=== PATIENT | male | born 1990 | race Caucasian/White ===

== ENCOUNTER 2023-05-23 19:11 | Emergency (ER) | payer MEDICAID, SELFPAY ==
[2023-05-23 19:14] VITALS: BP 151/118; PULSE 95; RESP 20; TEMP 36.9; O2SAT 98; BMI 38.7
--- NOTE | 2023-05-23 20:08 | HMH.EDGENADL ---
Discharge Plan Disposition Patient Disposition: Home, Self-Care Prescriptions Prescriptions: New hydrocodone-acetaminophen 5-325 mg tablet 1 tab PO Q6H PRN (Reason: pain) 5 Days Qty: 12 0RF prednisone 20 mg tablet 60 mg PO DAILY 7 Days Qty: 21 0RF No Action azithromycin 250 mg tablet 250 mg PO .COMPLEX Qty: 6 0RF Rx Instructions: take 500 mg today (day 1), then 250 mg for 4 days (days 2-5) 250 mg prednisone 20 mg tablet 20 mg PO BID 5 Days Qty: 10 0RF Referrals Follow up/Referrals: Nessa Bower MD [Primary Care Provider] - See instructions Activity Restrictions/Add. Instructions Additional Instructions/Restrictions: Given the chronicity of your symptoms are not improving with your current management I would highly recommend that you seek secondary opinions both from an infectious disease doctor with concerns for possible Lyme arthritis versus progressive chronic worsening of your juvenile rheumatoid arthritis and consultation with a product promoter sales person. Therefore I recommend that you follow-up with infectious disease and rheumatology at [facility] based on your insurance preferences. Clinical Impressions Clinical Impression: Chronic polyarthritis Discharge ED Provider: Venancio Lim General Adult HPI General Chief complaint: PAIN Stated complaint: swelling/pain/and redness all over Time Seen by Provider: 05/23/23 19:43 Mode of Arrival: Ambulatory Source of Information: Patient Limitations: No Limitations Description of Symptoms (Recalled from ER Triage Doc. by RN): patient has RA and is currently being treated for Lyme disease as well. pt has taken all normal daily home meds and is on 500mg amoxcillin TID for the lyme disease, his remicaid infusion for RA has been delayed due to current lyme disease treatment. pt is in pain and all joints are swollen and achy History of Present Illness HPI narrative: Patient is a 32-year-old male with a known history of chronic juvenile rheumatoid arthritis with progressive worsening of his symptoms he is followed by product promoter sales person in [facility] and states that this episode of pain and disability has been ongoing for 7 weeks now and is not improving with several low-dose and tapered courses of steroids as well as his immunologic that he is currently taking. He is also on diclofenac as well as colchicine for chronic gout. He presents today with worsening polyarthralgias. No fevers or chills. Of note he was recently diagnosed with a concern for questionable Lyme arthritis and is on amoxicillin. No fevers or chills etc. Related Data Previous Rx's Medication Instructions Recorded azithromycin 250 mg tablet 250 mg PO .COMPLEX #6 tabs 09/19/18 prednisone 20 mg tablet 20 mg PO BID 5 days #10 tabs 09/19/18 hydrocodone 5 mg-acetaminophen 325 1 tab PO Q6H PRN pain 5 days #12 05/23/23 mg tablet tabs prednisone 20 mg tablet 60 mg PO DAILY 7 days #21 tabs 05/23/23 Allergies Allergy/AdvReac Type Severity Reaction Status Date / Time belladonna alkaloids Allergy Verified 05/23/23 19:32 Gadolinium-Containing Allergy Verified 05/23/23 19:32 Contrast Medi latex Allergy Verified 05/23/23 19:31 levofloxacin [From Levaquin] Allergy Verified 05/23/23 19:32 minocycline Allergy Verified 05/23/23 19:32 [facility] Disclaimer: The information contained in this section may have been updated after the patient was seen, as this information can be updated by other users. Medical History (Updated 05/23/23 @ 20:07 by Venancio Lim MD) Lyme disease Rheumatoid arthritis Social History Smoking Status: Never smoker alcohol intake: never substance use type: denies use current occupational status: employed Travel in the last 8 weeks: None household members: significant other housing: house ROS Obtained: Yes All systems reviewed & no additional complaints except as documented Physical Exam General General appearanc
[2023-05-23 20:21] VITALS: BP 148/101; PULSE 78; RESP 20; TEMP 36.7; O2SAT 97
== END 2023-05-23 20:22 | disposition home or self-care (01) ==
PROVIDERS: Emergency Provider Student in an Organized Health Care Education/Training Program; PCP Family Medicine
DX: M13.0 Polyarthritis, unspecified (principal); M06.9 Rheumatoid arthritis, unspecified; A69.20 Lyme disease, unspecified
CPT/HCPCS: 99283

== ENCOUNTER 2024-01-21 09:52 | Outpatient (POV) | payer OTHER, SELFPAY ==
[2024-01-21 09:56] VITALS: BP 138/97; PULSE 95; RESP 18; O2SAT 98; BMI 37.3
--- OUTSIDE RECORDS SUMMARY | 2024-01-21 09:57 | XMS_ITS | Continuity of Care Document ---
Author Name Unknown Organization [facility] Address [address] [place] [address] Phone Care Team Providers Care District Wire Chief Name Role Phone Sylvie Garcia MD Unavailable Unavailable Allergies, Adverse Reactions, Alerts Substance Reaction Status Criticality latex Active No Information Medications Medication Instructions Dosage Effective Dates (start - stop) Status Comments oxycodone-acetaminophen 10 mg-325 mg tablet TAKE 1 TABLET BY MOUTH EVERY 6 HOURS NEEDED FOR ACUTE PAIN OR CHRONIC PAIN - Active methocarbamol 750 mg tablet TAKE 1 TABLET BY MOUTH 3 TIMES DAILY FOR 30 DAYS. - Active levocetirizine 5 mg tablet - Active amoxicillin 500 mg capsule TAKE 1 CAPSULE BY MOUTH 3 TIMES DAILY FOR 10 DAYS - Active fluoxetine 20 mg capsule - A ctive pregabalin 50 mg capsule - A ctive metoprolol succinate ER 25 mg tablet,extended release 24 hr - Active Vraylar 3 mg capsule - Activ e amoxicillin 875 mg-potassium clavulanate 125 mg tablet - Active tamsulosin 0.4 mg capsule - Active ondansetron HCl 4 mg tablet TAKE 1 TABLET BY MOUTH EVERY 8 HOURS NEEDED FOR NAUSEA. - Active oxycodone-acetaminophen 5 mg-325 mg tablet - Active indomethacin 50 mg capsule - Active duloxetine 30 mg capsule,delayed release - Active bupropion HCl XL 150 mg 24 hr tablet, extended release - Active colchicine 0.6 mg tablet - A ctive prednisone 20 mg tablet - tive prednisone 50 mg tablet TAKE 1 TABLET BY MOUTH DAILY - Active ketorolac 10 mg tablet TAKE 1 TABLET BY MOUTH TWICE DAILY - Active lisinopril 5 mg tablet - Act rosa sucralfate 1 gram tablet - A ctive allopurinol 100 mg tablet - Active famotidine 40 mg tablet - Ac tive prednisone 5 mg tablet TAKE 2 TABLETS BY MOUTH ONCE DAILY FOR 2 DAYS, THEN 1 TABLET DAILY FOR 4 DAYS - Active ipratropium 0.5 mg-albuterol 3 mg (2.5 mg base)/3 mL nebulization soln INHALE 1 VIAL BY NEBULIZATION EVERY 6 HOURS NEEDED FOR SHORTNESS OF BREATH - Active promethazine 6.25 mg-codeine 10 mg/5 mL syrup TAKE 5 ML BY MOUTH EVERY 6 HOURS NEEDED FOR (COUGH) FOR UP TO 3 DAYS. - Active promethazine-DM 6.25 mg-15 mg/5 mL oral syrup TAKE 5 ML BY MOUTH EVERY 6 HOURS NEEDED FOR OTHER (COUGH) FOR UP TO 30 DAYS. - Active ibuprofen 600 mg tablet TAKE 1 TABLET BY MOUTH EVERY 8 HOURS NEEDED FOR PAIN FOR UP TO 30 DAYS. - Active fluticasone propionate 50 mcg/actuation nasal spray,suspension INSTILL 2 SPRAYS IN EACH NOSTRIL DAILY FOR 14 DAYS - Active azithromycin 250 mg tablet - Active sucralfate 100 mg/mL oral suspension - Active dexamethasone 4 mg tablet - Active cephalexin 500 mg capsule TAKE 1 CAPSULE BY MOUTH IN THE MORNING, 1 CAPSULE AT NOON, & 1 CAPSULE IN THE EVENING FOR 7 DAYS. - Active cefdinir 300 mg capsule TAKE 1 CAPSULE B Y MOUTH TWICE DAILY FOR 10 DAYS - Active bupropion HCl XL 300 mg 24 hr tablet, extended release TAKE 1 TABLET BY MOUTH EVERY MORNING - Active tramadol 50 mg tablet - Acti ve colchicine 0.6 mg capsule TAKE 1 CAPSULE BY MOUTH TWICE DAILY - Active chlorhexidine gluconate 0.12 % mouthwash - Active levothyroxine 25 mcg tablet - Active valacyclovir 500 mg tablet - Active dexamethasone 0.5 mg/5 mL oral elixir - Active methylprednisolone 4 mg tablets in a dose pack TAKE 6 TABLETS ON DAY 1,THEN 5 TABS ON DAY 2,THEN 4 TABS ON DAY 3, 3 TABS ON DAY 4,THEN 2 TABS ON DAY 5 AND 1 TAB ON DAY 6. *TAKE WITH FOOD* - Active meloxicam 15 mg tablet - Act rosa hydrocodone 5 mg-acetaminophen 325 mg tablet - Active triamcinolone acetonide 0.1 % dental paste - Active levofloxacin 500 mg tablet - Active albuterol sulfate HFA 90 mcg/actuation aerosol inhaler - Active levofloxacin 750 mg tablet - Active potassium citrate ER 10 mEq (1,080 mg) tablet,extended release TAKE 1 TABLET BY MOUTH 3 TIMES DAILY - Active oxycodone-acetaminophen 7.5 mg-325 mg tablet TAKE 1 TO 2 TABLETS BY MOUTH EVERY 6 HOURS NEEDED FOR ACUTE PAIN FOR UP TO 3 DAYS. - Active doxycycline hyclate 100 mg tablet TAKE 1 TABLET BY MOUTH 2 TIMES DAILY FOR 7 DAYS. - Active ketoconazole 2 % shampoo APPLY TO THE SK IN 1 TIME A DAY. USE SHAMPOO FOR SCALP AND LAZARO. LEAVE IN FOR 5 MINUTES THEN RINSE - Active ketoconazole 2 % topical cream APPLY TO THE SKIN 1 TIME A DAY. APPLY TO REDNESS AND SCALING ON THE CENTRAL FACE - Active Betasept Surgical Scrub 4 % topical liquid APPLY TO THE SKIN 1 TIME A DAY. USE BODY WASH TO THE CHEST, BACK, AND EXTREMITIES - Active EC-Naproxen 500 mg tablet,delayed release TAKE 1 TABLET BY MOUTH TWICE DAILY WITH MEALS FOR 14 DAYS - Active Hibiclens 4 % topical liquid USE TO SHOWER WITH DAILY FOR 7 DAYS, ONCE A WEEK FOR 4 WEEKS, THEN ONCE A MONTH UNTIL GONE - Active mupirocin 2 % topical ointment APPLY TOPICALLY 3 TIMES DAILY - Active valacyclovir 1 gram tablet TAKE 1 TABLET BY MOUTH EVERY 8 HOURS FOR 7 DAYS. - Active phenazopyridine 100 mg tablet TAKE 1 TABLET BY MOUTH 3 TIMES DAILY NEEDED FOR UP TO 3 DAYS. - Active tolterodine ER 4 mg capsule,extended release 24 hr TAKE 1 CAPSULE BY MOUTH ONCE DAILY. - Active Mucus Relief ER 600 mg tablet, extended release TAKE 1 TABLET BY MOUTH TWICE DAILY FOR 5 DAYS - Active benzonatate 100 mg capsule TAKE 1 CAPSULE BY MOUTH 3 TIMES DAILY NEEDED FOR COUGH - Active Symbicort 160 mcg-4.5 mcg/actuation HFA aerosol inhaler INHALE TWO PUFFS INTO THE LUNGS TWICE DAILY - Active prednisone 10 mg tablet TAKE 5 TABLETS B Y MOUTH DAILY X2 DAYS, 4 TABS DAILY X2 DAYS, 3 TABS DAILY X2 DAYS, 2 TABS DAILY X2 DAYS, 1 TAB ONCE DAILY X2 DAYS, 1/2 TAB DAILY X2 DAYS. - Active ondansetron 4 mg disintegrating tablet DISSOLVE 1 TABLET ON TONGUE EVERY 4 HOURS NEEDED FOR NAUSEA. - Active ProAir HFA 90 mcg/actuation aerosol inhaler INHALE 2 PUFFS INTO THE LUNGS EVERY 4 HOURS NEEDED FOR WHEEZING. - Active Antiseptic Skin Cleanser (chlorhexidine) 4 % liquid WASH EVERY OTHER DAY FOR A COUPLE OF WEEKS. - Active Duexis 800 mg-26.6 mg tablet take 1 tablet by oral route 3 times every day 1.00 tablet - Active etodolac 400 mg tablet take 1 tablet by oral route 2 times every day with food 400 MG - Active Xeljanz 5 mg tablet take 1 tablet by oral route 2 times every day 5 MG - Active omeprazole 20 mg capsule,delayed release take 1 capsule by oral route every day 30 minutes to 1 hour before a meal 20 MG - Active Procedures Procedure Date Office/outpatient visit,est, mod 2021 Office/outpatient visit,new, mod 2021 Office/outpatient visit,new, mod 2016 Afo ankle gauntlet Afo ankle gauntlet Advance Directives Directive Yes / No Effective Date File Name No Information Encounters Encounter Description Practice Location Reason(s) For Visit Diagnoses Date Provider Providers Copied on Encounter [facility], [address] [place] [address], [facility], tel:[phone] [address] [place] [address] Surgical Suite No Information [address] [facility] Sylvie. [address] [place], [place], [id number] , [place]. tel:[phone] Referring Provider: Nessa Rivero, [place], [address]. tel:[phone] Office/outpat ient visit,[facility], [facility], [address] [place], [place], [facility], tel:[phone] [facility] Spondylolysis, lumbar region [address] [facility] Sylvie. [address] [place], [place], [id number] , [place]. tel:[phone] Referring Provider: [place], [address]. tel:[phone] Office[facility]pat ient [facility], [address] [place], [address], [place] tel:[phone] Other intervertebral disc degeneration, lumbar regionRadiculop athy, lumbar region Sep- 2 Jose Mercer. [address] [facility], [place], [place], [id number] , [place]. tel:[phone] Referring Provider: Sylvie Hannah, [address] [facility], [place], [address] . tel:[phone] [facility], [facility] [address] [place], [place], [facility], tel:[phone] 700 [facility] No Information Mar- 2 Jose Sylvie. [address] [place], [place], [id number] , [place]. tel:[phone] [facility], [facility] [address] [place], [place], [facility], tel:[phone] [facility] No Information 7 [place]. [address] [facility], [place], [place], [id number] , [place]. tel:[phone] Office/outpat ient visit,[facility] [address] [place], [place], [facility], tel:[phone] No Information 7 [place]. [address] [place], [place], [id number] , . tel:[phone] [facility] [address] [place], [place], [facility], tel:[phone] [facility] No Information 7 [place]. [address], [place], [place], [id number] , [place]. tel:[phone] Family History Family Member Type Diagnosis Age At Onset Problem (finding) Family history of hyper tension Problem (finding) Family history of Diabe cristi mellitus Payers Payer name Insurance type Covered alliance party ID Authorjohna tinuria(s) [facility] - [id number] Social History Type Description Quantity Date Captured Comments Alcohol Use Details Unknown Caffeine Use Details Unknown Tobacco Use Status No Information Smoking Status No Information Sex Male Chief Complaint And Reason For Visit No Information Reason For Referral Reason For Referral No Information History Of Present Illness Encounter Date Complaint History Of Prese nt Illness No Information Functional Status Date Functional Assessmen t No Information Instructions Date Instruction Additional Infor mation No Information Assessments Type Assessment Date No Information Patient Care Teams Name Effective Dates (start - stop) Status Members No Information
--- NOTE | 2024-01-21 12:37 | EXP.PAIN.OV ---
HPI Data of Consult Patient: new to practice Consult date: 01/21/24 Requesting Physician: Julia Zamudio APRN Primary Care Provider: Ly Dickinson DO Consult Narrative Reason for consult: Infected pilonidal cyst, chronic low back pain History of present illness: Mr. Dc is a 33 year old male who presents today as a new patient. He is a referral from [facility] care. Today he rates his pain a 6 out of 10. Patient states he has chronic pain throughout his low back that is been going on for over 2 years. He denies states that he did end up having surgery and that this did take away his overall leg symptoms. He states he will occasionally have pain in his legs but it is not that frequently. Patient does however state most of his pain is related to an infected pilonidal cyst. Patient states that he did see a provider in [facility] named Dr. Nguyễn and that this procedure was originally done on November 27 of this year. He states he has had to go back into different times to have it drained and that they did do cultures however the first culture was lost and the second 1 showed staph. Patient does state that he has severe pain that is a sharp, throbbing sensation that is constant. He does state that he has a lot of trouble even sitting due to the pain. Patient does state that this infection is large and does have tunneling. He states that they have been packing it with initially antibiotic packing strips but now they have changed it to plain strips that they do soaked in solution before applying. Patient does state that he relies on his mom for help with attending this issue. Patient does state that he has been prescribed Percocet 5 mg 4 times a day and is also on Bactrim however feels like it is not improving any of his overall symptoms. Patient does state that he got sent to our office to see about continuing oral medications due to his primary care saying that they could not do the prescriptions long-term. Patient does state that he has stage II kidney disease. Patient has been tried on oral medications, heat and ice, topicals, muscle relaxers with some improvement. He states that he did have imaging done in [place] and has tried lumbar injections in the past that did not seem to do as well however this was before his lumbar surgery. His Ganesh has been reviewed and is appropriate. CC: Julia Zamudio APRN [facility] Disclaimer: The information contained in this section may have been updated after the patient was seen, as this information can be updated by other users. Medical History (Updated 01/21/24 @ 12:44 by Julia Zamudio APRN) Lyme disease Rheumatoid arthritis Social History Smoking Status: Never smoker alcohol intake: never substance use type: denies use current occupational status: other Travel in the last 8 weeks: None household members: significant other housing: house Review of Systems Review of Systems Review of systems:: pertinent systems reviewed and negative unless documented below Review of systems (narrative): Review of Systems: General: No recent weight changes, no fever, no sleep disturbances Respiratory: No cough, no shortness of air, no recurring pulmonary infections Cardiovascular/peripheral vascular: No chest pain, no palpitations, no edema, no shortness of breath Gastrointestinal: No new onset incontinence, normal bowel movements reported Genitourinary: No new onset incontinence Musculoskeletal: Low back pain, Psychiatric: [Normal mood/affect] Neurological: [Denies weakness in extremities], [denies balance issues] Meds Home Medications and Allergies Home Medications Medication Instructions Recorded Confirmed Type hydrocodone 5 mg-acetaminophen 325 1 tab PO Q6H PRN pain 5 days #12 05/23/23 01/21/24 Rx mg tablet tabs bupropion HCl 150 mg 24 hr tablet, 150 mg PO DAILY 01/21/24 01/21/24 History extended release (Wellbutrin XL) cariprazine 4.5 mg capsule 4.5 mg PO DAILY 01/21/24 01/21/24 History (Vraylar) duloxetine 30 mg capsule,delayed 30 mg PO BID 01/21/24 01/21/24 History release (Cymbalta) famotidine 40 mg tablet 40 mg PO DAILY 01/21/24 01/21/24 History fluoxetine 20 mg capsule (Prozac) 20 mg PO DAILY 01/21/24 01/21/24 History infliximab 100 mg intravenous 100 mg IV MONTHLY 01/21/24 01/21/24 History solution (Remicade) levocetirizine 5 mg tablet 5 mg PO DAILY 01/21/24 01/21/24 History lisinopril 5 mg tablet 5 mg PO DAILY 01/21/24 01/21/24 History metoprolol tartrate 25 mg tablet 25 mg PO DAILY 01/21/24 01/21/24 History omeprazole 40 mg capsule,delayed 40 mg PO DAILY 01/21/24 01/21/24 History release New Prescriptions to Start Prescriptions: Allergies Allergy/AdvReac Type Severity Reaction Status Date / Time belladonna alkaloids Allergy Verified 01/21/24 09:56 Gadolinium-Containing Allergy Verified 01/21/24 09:56 Contrast Medi latex Allergy Verified 01/21/24 09:56 levofloxacin [From Levaquin] Allergy Verified 01/21/24 09:56 minocycline Allergy Verified 01/21/24 09:56 Objective Vital signs: Pulse Resp BP Pulse Ox O2 Del Method 95 H 18 138/97 H 98 Room Air 01/21/24 09:56 01/21/24 09:56 01/21/24 09:56 01/21/24 09:56 01/21/24 09:56 Narrative: Physical Exam: General: Alert and oriented x3, no acute distress, pleasant and cooperative Lungs: Respirations even and unlabored, symmetrical chest expansion Eyes: PERRL Musculoskeletal: Flexion and extension of [] [spine] somewhat guarded secondary to pain, [antalgic gait noted] Neurological: Speech clear, no gross sensory deficit Additional findings Additional findings: Lumbar MRI 10/21/2023 Findings: There are expected postoperative changes in the posterior elements and posterior soft tissues at L4-L5 and L5-S1. No fluid collection is identified. There is no epidural abscess. Alignment of the lumbar spine is normal. The vertebral heights are maintained and there is no fracture. Disc protrusions and annular fissures and central canal narrowing at L4-L5 and L5-S1 are similar to prior MRI Thoracic MRI Findings: Alignment of the thoracic spine is normal. Vertebral heights are maintained and no fracture. Caliber and signal of the spinal cord are normal. No areas of abnormal enhancement. disc heights are preserved no degenerative changes. Soft tissues unremarkable Assessment and Plan *Assessment and plan (1) Low back pain: Status: Acute Qualifiers: Chronicity: chronic Back pain laterality: bilateral Sciatica presence: without sciatica Qualified Code(s): M54.50 - Low back pain, unspecified; G89.29 - Other chronic pain Category: Medical Code(s): M54.50 - Low back pain, unspecified (2) Degenerative disc disease, lumbar: Status: Acute Category: Medical Code(s): M51.36 - Other intervertebral disc degeneration, lumbar region (3) Infected pilonidal cyst: Status: Acute Category: Medical Code(s): L05.91 - Pilonidal cyst without abscess Plan Due to the extent of discussion regarding the patient's pilonidal cyst infection I have discussed with him that I do believe it would be very beneficial to discuss with another general surgeon about possible washout with antibiotics and possible closure. Patient is agreeable to this plan of care. I have discussed with patient due to this infection we are not able to offer any additional injections until this is taking care of. Patient acknowledges understanding. I have also discussed that we may be able to send in some pain medication however patient is scheduled to see wound management this coming Sunday and he does state he would like to talk to them first before we send anything in. I am agreeable to this option. Patient will follow back up in our clinic in 2 weeks for reevaluation of symptoms and plan of care. We will send a referral to Dr. Dolan's office here at [facility] to address the infected pilonidal cyst for second opinion. Patient has been instructed to contact the clinic with any concerns before the next appointment. Dr. Rodriguez has reviewed this note and agrees with this plan of care. This note was dictated using voice recognition software and make contain errors or omissions.
== END 2024-01-21 23:59 | disposition home or self-care (01) ==
LOC: SC.PAIN 09:55
PROVIDERS: PCP Student in an Organized Health Care Education/Training Program; Visit Provider Nurse Practitioner Family
DX: G89.29 Other chronic pain; M51.36 Other intervertebral disc degeneration, lumbar region; L05.91 Pilonidal cyst without abscess; N18.2 Chronic kidney disease, stage 2 (mild); Z79.899 Other long term (current) drug therapy
CPT/HCPCS: 99202; G0463

== ENCOUNTER 2024-01-26 12:45 | Emergency (ER) | payer OTHER, SELFPAY ==
[2024-01-26 13:00] VITALS: BP 137/89; PULSE 117; RESP 20; TEMP 36.8; O2SAT 98; BMI 37.3
--- NOTE | 2024-01-26 13:01 | EXP.UTC ---
Discharge Plan Disposition Patient Disposition: Home, Self-Care Condition: Good Prescriptions Prescriptions: New cefdinir 300 mg capsule 300 mg PO BID Qty: 20 0RF prednisone 20 mg tablet 20 mg PO BID Qty: 10 0RF albuterol sulfate 90 mcg/actuation HFA aerosol inhaler 2 inh inhalation Q4-6H PRN (Reason: shortness of breath or wheezing) Qty: 6.7 0RF No Action buspirone 10 mg tablet 10 mg PO DAILY Patient Comments: TAKE 2 TABLETS BY MOUTH DAILY. MAKE TAKE AN ADDITIONAL BUSPAR DAILY IF NEED FOR ANXIETY hydrocodone-acetaminophen 5-325 mg tablet 1 tab PO Q6H PRN (Reason: pain) 5 Days Qty: 12 0RF famotidine 40 mg Tablet 40 mg PO DAILY omeprazole 40 mg Capsule,Delayed Release(Dr/Ec) 40 mg PO DAILY infliximab [Remicade] 100 mg Recon Soln 100 mg IV MONTHLY lisinopril 5 mg Tablet 5 mg PO DAILY fluoxetine [Prozac] 20 mg Capsule 20 mg PO DAILY bupropion HCl [Wellbutrin XL] 150 mg Tablet Extended Release 24 Hr 150 mg PO DAILY metoprolol tartrate 25 mg Tablet 25 mg PO DAILY duloxetine [Cymbalta] 30 mg Capsule,Delayed Release(Dr/Ec) 30 mg PO BID levocetirizine 5 mg Tablet 5 mg PO DAILY Vraylar 4.5 mg Capsule 4.5 mg PO DAILY Referrals Follow up/Referrals: Ly Dickinson DO [Primary Care Provider] - See instructions Clinical Impressions Clinical Impression: Bronchitis, Chronic polyarthritis Instructions Patient Instructions: DI for Acute Bronchitis Print Language Print Language: Kinyarwanda Discharge ED Provider: [place] Nolasco [facility] General Stated complaint: head congestion, arthritis flare up Time Seen by Provider: 01/26/24 13:20 History of Present Illness Provider Complaint: Congestion, headache, sore throat, fever, body aches X 3 days. History of juvenile RA but has not had infusion since September due to pilonidal cyst. Onset (ago): day(s) (3) Location: head Relieving factors: none Exacerbating factors: none Associated symptoms: denies other symptoms, cough, fever/chills, headaches and shortness of breath Treatments prior to arrival: none Related Data Home Medications ?Medication ?Instructions ?Recorded ?Confirmed bupropion HCl 150 mg 24 hr tablet, 150 mg PO DAILY 01/21/24 01/26/24 extended release (Wellbutrin XL) cariprazine 4.5 mg capsule 4.5 mg PO DAILY 01/21/24 01/26/24 (Vraylar) duloxetine 30 mg capsule,delayed 30 mg PO BID 01/21/24 01/26/24 release (Cymbalta) famotidine 40 mg tablet 40 mg PO DAILY 01/21/24 01/26/24 fluoxetine 20 mg capsule (Prozac) 20 mg PO DAILY 01/21/24 01/26/24 infliximab 100 mg intravenous 100 mg IV MONTHLY 01/21/24 01/26/24 solution (Remicade) levocetirizine 5 mg tablet 5 mg PO DAILY 01/21/24 01/26/24 lisinopril 5 mg tablet 5 mg PO DAILY 01/21/24 01/26/24 metoprolol tartrate 25 mg tablet 25 mg PO DAILY 01/21/24 01/26/24 omeprazole 40 mg capsule,delayed 40 mg PO DAILY 01/21/24 01/26/24 release buspirone 10 mg tablet 10 mg PO DAILY 01/26/24 01/26/24 Previous Rx's ?Medication ?Instructions ?Recorded hydrocodone 5 mg-acetaminophen 325 1 tab PO Q6H PRN pain 5 days #12 05/23/23 mg tablet tabs albuterol sulfate 90 mcg/actuation 2 inh inhalation Q4-6H PRN 01/26/24 aerosol inhaler shortness of breath or wheezing #6.7 grams cefdinir 300 mg capsule 300 mg PO BID #20 caps 01/26/24 prednisone 20 mg tablet 20 mg PO BID #10 tabs 01/26/24 Allergies Allergy/AdvReac Type Severity Reaction Status Date / Time belladonna alkaloids Allergy Verified 01/21/24 09:56 Gadolinium-Containing Allergy Verified 01/21/24 09:56 Contrast Medi latex Allergy Verified 01/21/24 09:56 levofloxacin [From Levaquin] Allergy Verified 01/21/24 09:56 minocycline Allergy Verified 01/21/24 09:56 [facility] Disclaimer: The information contained in this section may have been updated after the patient was seen, as this information can be updated by other users. Medical History (Updated 01/26/24 @ 13:36 by MARGARITO oL) Kidney stones GERD (gastroesophageal reflux disease) Depression Anxiety Migraine Asthma Hypertension Lyme disease Rheumatoid arthritis Surgical History (Updated 01/26/24 @ 13:15 by Beba Kaplan, RN) History of surgical removal of pilonidal cyst History of lumbar discectomy History of foot surgery Social History Smoking Status: Never smoker alcohol intake: never substance use type: denies use current occupational status: other Travel in the last 8 weeks: None household members: significant other housing: house ROS Obtained: Yes All systems reviewed & no additional complaints except as documented Physical Exam General General appearance: alert and in no apparent distress Head Head exam: atraumatic, normocephalic and normal inspection Eye Eye exam: Present normal appearance, PERRL and EOMI ENT ENT exam: Present normal exam, normal oropharynx, mucous membranes moist, TM's normal bilaterally and normal external ear exam Expanded ENT Exam Nose exam: Present sinus tenderness Throat exam: Present tonsillar erythema Neck Neck exam: Present normal inspection, full ROM and trachea midline; Absent meningismus or lymphadenopathy Chest Chest inspection: Present normal inspection and symmetric chest wall rise; Absent tenderness Respiratory Respiratory exam: Present normal lung sounds bilaterally and wheezes; Absent respiratory distress Cardiovascular Cardiovascular exam: Present regular rate and normal rhythm; Absent JVD Abdominal Exam Abdominal exam: Present soft and normal bowel sounds; Absent distention, tenderness or guarding Extremities Exam Extremities exam: Present normal inspection, full ROM and normal capillary refill; Absent calf tenderness Back Exam Back exam: Present normal inspection; Absent tenderness Neurological Exam Neurological exam: Present alert and oriented X3 Psychiatric Psychiatric exam: Present normal affect and normal mood Skin Skin exam: Present warm, dry, intact and normal color Lymphatic Lymphatic Findings: no adenopathy Medical Decision Making Ganesh Inquiry Pt receiving controlled substance: No
[2024-01-26] MEDS: cefTRIAXone 1GM VIAL 1 GM IM (13:29)
[2024-01-26] MEDS: LIDOCAINE 1% 5ML PF VIAL IM (13:29)
[2024-01-26] MEDS: methylPREDNISolone ACETATE 80MG/ML VIAL 80 MG IM (13:29)
[2024-01-26 13:38] VITALS: BP 137/89; PULSE 117; RESP 20; TEMP 36.8; O2SAT 98
== END 2024-01-26 13:45 | disposition home or self-care (01) ==
PROVIDERS: Emergency Provider Physician Assistant; PCP Student in an Organized Health Care Education/Training Program
DX: J20.9 Acute bronchitis, unspecified (principal); R51.9 Headache, unspecified; R50.9 Fever, unspecified; R07.0 Pain in throat; M13.0 Polyarthritis, unspecified
CPT/HCPCS: 96372; 99204; 99212; G0463; J0696; J1010

== ENCOUNTER 2024-02-06 08:42 | Outpatient (POV) | payer OTHER, SELFPAY ==
--- OUTSIDE RECORDS SUMMARY | 2024-02-06 08:45 | XMS_ITS | Continuity of Care Document ---
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 - Active oxycodone-acetaminophen 10 mg-325 mg tablet TAKE 1 TABLET BY MOUTH EVERY 6 HOURS NEEDED FOR ACUTE PAIN OR CHRONIC PAIN - Active amoxicillin 500 mg capsule TAKE 1 CAPSULE BY MOUTH 3 TIMES DAILY FOR 10 DAYS - Active fluoxetine 20 mg capsule - A ctive pregabalin 50 mg capsule - A ctive metoprolol succinate ER 25 mg tablet,extended release 24 hr - Active Vraylar 3 mg capsule - Activ e amoxicillin 875 mg-potassium clavulanate 125 mg tablet - Active ondansetron HCl 4 mg tablet TAKE 1 TABLET BY MOUTH EVERY 8 HOURS NEEDED FOR NAUSEA. - Active tamsulosin 0.4 mg capsule - Active oxycodone-acetaminophen 5 mg-325 mg tablet - Active indomethacin 50 mg capsule - Active bupropion HCl XL 150 mg 24 hr tablet, extended release - Active duloxetine 30 mg capsule,delayed release - Active colchicine 0.6 mg tablet - A ctive prednisone 20 mg tablet - Ac tive ketorolac 10 mg tablet TAKE 1 TABLET BY MOUTH TWICE DAILY - Active prednisone 50 mg tablet TAKE 1 TABLET BY MOUTH DAILY - Active lisinopril 5 mg tablet - Act rosa sucralfate 1 gram tablet - A ctive allopurinol 100 mg tablet - Active famotidine 40 mg tablet - Ac tive ipratropium 0.5 mg-albuterol 3 mg (2.5 mg base)/3 mL nebulization soln INHALE 1 VIAL BY NEBULIZATION EVERY 6 HOURS NEEDED FOR SHORTNESS OF BREATH - Active prednisone 5 mg tablet TAKE 2 TABLETS BY MOUTH ONCE DAILY FOR 2 DAYS, THEN 1 TABLET DAILY FOR 4 DAYS - Active promethazine 6.25 mg-codeine 10 mg/5 [...] NOSTRIL DAILY FOR 14 DAYS - Active ibuprofen 600 mg tablet TAKE 1 TABLET BY MOUTH EVERY 8 HOURS NEEDED FOR PAIN FOR UP TO 30 DAYS. - Active azithromycin 250 mg tablet - Active sucralfate 100 mg/mL oral suspension - Active dexamethasone 4 mg tablet - Active cephalexin 500 mg capsule TAKE 1 CAPSULE BY MOUTH IN THE MORNING, 1 CAPSULE AT NOON, & 1 CAPSULE IN THE EVENING FOR 7 DAYS. - Active bupropion HCl XL 300 mg 24 hr tablet, extended release TAKE 1 TABLET BY MOUTH EVERY MORNING - Active cefdinir 300 mg capsule TAKE 1 CAPSULE B Y MOUTH TWICE DAILY FOR 10 DAYS - Active tramadol 50 mg tablet - Acti ve colchicine 0.6 mg capsule TAKE 1 CAPSULE BY MOUTH TWICE DAILY - Active chlorhexidine gluconate 0.12 % mouthwash - Active levothyroxine 25 mcg tablet - Active dexamethasone 0.5 mg/5 mL oral elixir - Active valacyclovir 500 mg tablet - Active methylprednisolone 4 mg tablets in a dose pack TAKE 6 TABLETS ON DAY 1,THEN 5 TABS ON DAY 2,THEN 4 TABS ON DAY 3, 3 TABS ON DAY 4,THEN 2 TABS ON DAY 5 AND 1 TAB ON DAY 6. *TAKE WITH FOOD* - Active hydrocodone 5 mg-acetaminophen 325 mg tablet - Active meloxicam 15 mg tablet - Act rosa triamcinolone acetonide 0.1 % dental paste - Active levofloxacin 500 mg tablet - Active albuterol sulfate HFA 90 mcg/actuation aerosol inhaler - Active levofloxacin 750 mg tablet - Active potassium citrate ER 10 mEq (1,080 mg) tablet,extended release TAKE 1 TABLET BY MOUTH 3 TIMES DAILY - Active doxycycline hyclate 100 mg tablet TAKE 1 TABLET BY MOUTH 2 TIMES DAILY FOR 7 DAYS. - Active oxycodone-acetaminophen 7.5 mg-325 mg tablet TAKE 1 TO 2 TABLETS BY MOUTH EVERY 6 HOURS NEEDED FOR ACUTE PAIN FOR UP TO 3 DAYS. - Active Betasept Surgical Scrub 4 % topical liquid APPLY TO THE SKIN 1 TIME A DAY. USE BODY WASH TO THE CHEST, BACK, AND EXTREMITIES - Active ketoconazole 2 % topical cream APPLY TO THE SKIN 1 TIME A DAY. APPLY TO REDNESS AND SCALING ON THE CENTRAL FACE - Active ketoconazole 2 % shampoo APPLY TO THE SK IN 1 TIME A DAY. USE SHAMPOO FOR SCALP AND LAZARO. LEAVE IN FOR 5 MINUTES THEN RINSE - Active EC-Naproxen 500 mg tablet,delayed release [...] CAPSULE BY MOUTH ONCE DAILY. - Active benzonatate 100 mg capsule TAKE 1 CAPSULE BY MOUTH 3 TIMES DAILY NEEDED FOR COUGH - Active Mucus Relief ER 600 mg tablet, extended release TAKE 1 TABLET BY MOUTH TWICE DAILY FOR 5 DAYS - Active prednisone 10 mg tablet TAKE 5 TABLETS B Y MOUTH DAILY X2 DAYS, 4 TABS DAILY X2 DAYS, 3 TABS DAILY X2 DAYS, 2 TABS DAILY X2 DAYS, 1 TAB ONCE DAILY X2 DAYS, 1/2 TAB DAILY X2 DAYS. - Active Symbicort 160 mcg-4.5 mcg/actuation HFA aerosol inhaler INHALE TWO PUFFS INTO THE LUNGS TWICE DAILY - Active ondansetron 4 mg disintegrating tablet DISSOLVE 1 TABLET ON TONGUE EVERY 4 HOURS NEEDED FOR NAUSEA. - Active Antiseptic Skin Cleanser (chlorhexidine) 4 % liquid WASH EVERY OTHER DAY FOR A COUPLE OF WEEKS. - Active ProAir HFA 90 mcg/actuation aerosol inhaler INHALE 2 PUFFS INTO THE LUNGS EVERY 4 HOURS NEEDED FOR WHEEZING. - Active Duexis 800 mg-26.6 mg tablet take 1 tablet by oral route 3 times every day 1.00 tablet - Active omeprazole 20 mg capsule,delayed release take 1 capsule by oral route every day 30 minutes to 1 hour before a meal 20 MG - Active Xeljanz 5 mg tablet take 1 tablet by oral route 2 times every day 5 MG - Active etodolac 400 mg tablet take 1 tablet by oral route 2 times every day with food 400 MG - Active Procedures Procedure Date Office/outpatient visit,est, mod 2021 Office/outpatient visit,new, mod 2021 Office/outpatient visit,new, mod 2016 Afo ankle gauntlet Afo ankle gauntlet Advance Directives Directive Yes / No Effective Date File Name No Information Encounters Encounter Description Practice Location Reason(s) For Visit Diagnoses Date Provider Providers Copied on Encounter [facility], [address] [place] [address], [place], tel:[phone] [address] [place] [address] Surgical Suite No Information 2 Jose Sylvie. [address], [place], [id number] , [place]. tel:[phone] Referring Provider: Gur[place], [id number]. tel:[phone] Office/outpat ient visit,[facility], [facility], [address], [place], [place], tel:[phone] [facility] Spondylolysis, lumbar region 2 Jose Sylvie. [address], [place], [id number] , [place]. tel:[phone] Referring Provider: [place], [id number]. tel:[phone] Office/outpat ient visit,[facility], [address] [place], [address], [place] tel:[phone] [facility] Other intervertebral disc degeneration, lumbar regionRadiculop athy, lumbar region Sep-2 2 Jose Mercer. [address] [facility], [place], [place], [id number] , [place]. tel:[phone] Referring Provider: Sylvie Hannah, [address] [place], [address] . tel:[phone] [facility], [facility] [address], [place], [place], tel:[phone] [address] [facility] No Information Mar-2 2 Jose Sylvie. [address] [place], [place], [id number] , [place]. tel:[phone] [facility], [facility] [address], [place], [place], tel:[phone] 700 [facility] No Information 7 [facility]. [facility] [address] [facility], [place], [place], [id number] , [place]. tel:[phone] Office/outpat ient visit,[facility] [address], [place], [place], tel:[phone] 700 [facility] No Information 7 [place] [facility]. [address] [facility], [place], [place], [id number] , [place]. tel:[phone] [facility] [address], [place], [place], tel:[phone] 700 [facility] No Information 7 [place] [facility]. [address], [place], [place], [id number] , [place]. tel:[phone] Family History Family Member Type Diagnosis Age At Onset Problem (finding) Family history of hyper tension Problem (finding) Family history of Diabe cristi mellitus Payers Payer name Insurance type Covered constitution party ID Authorjohna jaxonnuria(s) [facility] - [id number] Social History Type Description Quantity Date Captured [...]
[2024-02-06 08:54] VITALS: BP 146/103; PULSE 90; RESP 16; O2SAT 98; BMI 37.3
--- NOTE | 2024-02-06 09:54 | EXP.PAIN.SOA ---
[facility] Disclaimer: The information contained in this section may have been updated after the patient was seen, as this information can be updated by other users. Medical History (Updated 01/26/24 @ 13:36 by MARGARITO Lo) Kidney stones GERD (gastroesophageal reflux disease) Depression Anxiety Migraine Asthma Hypertension Lyme disease Rheumatoid arthritis Surgical History (Updated 01/26/24 @ 13:15 by Beba Kaplan RN) History of surgical removal of pilonidal cyst History of lumbar discectomy History of foot surgery Social History Smoking Status: Never smoker alcohol intake: never substance use type: denies use current occupational status: unemployed Travel in the last 8 weeks: None household members: significant other housing: house PM Subjective & Objective Subjective Subjective:: Patient is a pleasant 33-year-old male who presents today for follow-up. Today he rates his pain a 7 out of 10. He denies any new injury or trauma. He does state from our last visit that he has been to see wound management and saw the general surgeon within this office as well. He states that they are same the wound does look overall good and that it is just going to take a lot of time for it to heal due to 1 area that is tunneled. He does state that they have talked about doing a wound VAC however due to the depth of the 1 location they were not able to use this. Patient states that his primary care did also talk to him and that she is okay with continuing his pain medicines of Percocet 5 mg 4 times a day since this is a temporary medication until this wound heals. Patient does state that he is still interested and doing injections or procedures in future for his back pain however understands that we will wait until the infection is completely gone and his wound overall healed. His Ganesh has been reviewed and is appropriate. Review of Systems: General: No recent weight changes, no fever, no sleep disturbances Respiratory: No cough, no shortness of air, no recurring pulmonary infections Cardiovascular/peripheral vascular: No chest pain, no palpitations, no edema, no shortness of breath Gastrointestinal: No new onset incontinence, normal bowel movements reported Genitourinary: No new onset incontinence Musculoskeletal: Pilonidal cyst pain, low back pain Psychiatric: [Normal mood/affect] Neurological: [Denies weakness in extremities], [denies balance issues] Pain at rest (0-10 scale): 7 Objective Objective:: Physical Exam: General: Alert and oriented x3, no acute distress, pleasant and cooperative Lungs: Respirations even and unlabored, symmetrical chest expansion Eyes: PERRL Musculoskeletal: Flexion and extension of lumbar [spine] somewhat guarded secondary to pain, [antalgic gait noted] Neurological: Speech clear, no gross sensory deficit Has patient had previous pain injection?: No Conservative treatment options previously tried: Prescription medications Length of treatment: Longer than 6 weeks Meds Home Medications and Allergies Home Medications ?Medication ?Instructions ?Recorded ?Confirmed ?Type hydrocodone 5 mg-acetaminophen 325 1 tab PO Q6H PRN pain 5 days #12 05/23/23 02/06/24 Rx mg tablet tabs bupropion HCl 150 mg 24 hr tablet, 150 mg PO DAILY 01/21/24 02/06/24 History extended release (Wellbutrin XL) cariprazine 4.5 mg capsule 4.5 mg PO DAILY 01/21/24 02/06/24 History (Vraylar) duloxetine 30 mg capsule,delayed 30 mg PO BID 01/21/24 02/06/24 History release (Cymbalta) famotidine 40 mg tablet 40 mg PO DAILY 01/21/24 02/06/24 History fluoxetine 20 mg capsule (Prozac) 20 mg PO DAILY 01/21/24 02/06/24 History infliximab 100 mg intravenous 100 mg IV MONTHLY 01/21/24 02/06/24 History solution (Remicade) levocetirizine 5 mg tablet 5 mg PO DAILY 01/21/24 02/06/24 History lisinopril 5 mg tablet 5 mg PO DAILY 01/21/24 02/06/24 History metoprolol tartrate 25 mg tablet 25 mg PO DAILY 01/21/24 02/06/24 History omeprazole 40 mg capsule,delayed 40 mg PO DAILY 01/21/24 02/06/24 History release albuterol sulfate 90 mcg/actuation 2 inh inhalation Q4-6H PRN 01/26/24 02/06/24 Rx aerosol inhaler shortness of breath or wheezing #6.7 grams buspirone 10 mg tablet 10 mg PO DAILY 01/26/24 02/06/24 History cefdinir 300 mg capsule 300 mg PO BID #20 caps 01/26/24 02/06/24 Rx prednisone 20 mg tablet 20 mg PO BID #10 tabs 01/26/24 02/06/24 Rx New Prescriptions to Start Prescriptions: Allergies Allergy/AdvReac Type Severity Reaction Status Date / Time belladonna alkaloids Allergy Verified 01/21/24 09:56 Gadolinium-Containing Allergy Verified 01/21/24 09:56 Contrast Medi latex Allergy Verified 01/21/24 09:56 levofloxacin [From Levaquin] Allergy Verified 01/21/24 09:56 minocycline Allergy Verified 01/21/24 09:56 Assessment and Plan *Assessment and plan (1) Infected pilonidal cyst: Status: Acute Category: Medical Code(s): L05.91 - Pilonidal cyst without abscess (2) Degenerative disc disease, lumbar: Status: Acute Category: Medical Code(s): M51.36 - Other intervertebral disc degeneration, lumbar region (3) Low back pain: Status: Acute Qualifiers: Chronicity: chronic Back pain laterality: bilateral Sciatica presence: without sciatica Qualified Code(s): M54.50 - Low back pain, unspecified; G89.29 - Other chronic pain Category: Medical Code(s): M54.50 - Low back pain, unspecified Plan I did review over with the patient that we can look at doing additional interventions once his pilonidal cyst is healed. I did also discuss still about our office prescribing pain medications and that as long as his PCP is covering this then we will see him from time to time until the incision heals and then see about doing something for his chronic back pain. At our last visit the patient was sent for referral to Dr. Dolan's office for evaluation however he states he has not heard from his office. He does state that it could have been that he missed the phone call. I have counseled the patient in future this may still be something that would be beneficial to get a second opinion however at this time we will wait since he did see an outside general surgeon with wound management who did think it looked good overall. Patient did have the site scraped on Sunday. Patient will return to clinic in 1 month for reevaluation of symptoms and plan of care. Patient has been instructed to contact the clinic with any concerns before the next appointment. Dr. Rodriguez has reviewed this note and agrees with this plan of care. This note was dictated using voice recognition software and make contain errors or omissions. All injections are used with Lidocaine or Bupivacaine and Depo Medrol.
== END 2024-02-06 23:59 | disposition home or self-care (01) ==
LOC: SC.PAIN 08:42
PROVIDERS: PCP Student in an Organized Health Care Education/Training Program; Visit Provider Nurse Practitioner Family
DX: M51.36 Other intervertebral disc degeneration, lumbar region (principal); L05.91 Pilonidal cyst without abscess; M54.50 Low back pain, unspecified; G89.29 Other chronic pain; Z79.899 Other long term (current) drug therapy
CPT/HCPCS: 99212; G0463

== ENCOUNTER 2024-07-11 23:49 | Emergency (ER) | payer OTHER, SELFPAY ==
--- NOTE | 2024-07-11 23:54 | ED_ITS ---
Discharge Plan Disposition Patient Disposition: Home, Self-Care Prescriptions Prescriptions: No Action buspirone 10 mg tablet 10 mg PO DAILY Patient Comments: TAKE 2 TABLETS BY MOUTH DAILY. MAKE TAKE AN ADDITIONAL BUSPAR DAILY IF NEED FOR ANXIETY cefdinir 300 mg capsule 300 mg PO BID Qty: 20 0RF prednisone 20 mg tablet 20 mg PO BID Qty: 10 0RF albuterol sulfate 90 mcg/actuation HFA aerosol inhaler 2 inh inhalation Q4-6H PRN (Reason: shortness of breath or wheezing) Qty: 6.7 0RF hydrocodone-acetaminophen 5-325 mg tablet 1 tab PO Q6H PRN (Reason: pain) 5 Days Qty: 12 0RF famotidine 40 mg Tablet 40 mg PO DAILY omeprazole 40 mg Capsule,Delayed Release(Dr/Ec) 40 mg PO DAILY infliximab [Remicade] 100 mg Recon Soln 100 mg IV MONTHLY lisinopril 5 mg Tablet 5 mg PO DAILY fluoxetine [Prozac] 20 mg Capsule 20 mg PO DAILY bupropion HCl [Wellbutrin XL] 150 mg Tablet Extended Release 24 Hr 150 mg PO DAILY metoprolol tartrate 25 mg Tablet 25 mg PO DAILY duloxetine [Cymbalta] 30 mg Capsule,Delayed Release(Dr/Ec) 30 mg PO BID levocetirizine 5 mg Tablet 5 mg PO DAILY Vraylar 4.5 mg Capsule 4.5 mg PO DAILY Referrals Follow up/Referrals: Ly Dickinson DO [Primary Care Provider] - See instructions Activity Restrictions/Add. Instructions Additional Instructions/Restrictions: Please follow-up with your primary care provider. Please return to the emergency department if you develop any new or worsening symptoms or become concerned for your health. Clinical Impressions Clinical Impression: Abdominal wall pain in right flank Instructions Patient Instructions: DI for Acute Abdominal Pain Print Language Print Language: [place] Discharge ED Provider: Cipriano Nino General Adult HPI General Chief complaint: Abdominal Pain Stated complaint: kidney stones Time Seen by Provider: 07/11/24 23:54 History of Present Illness HPI narrative: 33-year-old male with history of juvenile rheumatoid arthritis, kidney stones, hypertension presents for right flank pain. He has had prior cholecystectomy. He reports he had sudden onset flank pain earlier today and has had some changes in urination, feeling like he needs to pee but cannot. He denies any fever at home. Denies any other systemic symptoms. Symptoms started while he was riding in a very bumpy vehicle. Worse with movement. Related Data Home Medications ?Medication ?Instructions ?Recorded ?Confirmed bupropion HCl 150 mg 24 hr tablet, 150 mg PO DAILY 01/21/24 02/06/24 extended release (Wellbutrin XL) cariprazine 4.5 mg capsule 4.5 mg PO DAILY 01/21/24 02/06/24 (Vraylar) duloxetine 30 mg capsule,delayed 30 mg PO BID 01/21/24 02/06/24 release (Cymbalta) famotidine 40 mg tablet 40 mg PO DAILY 01/21/24 02/06/24 fluoxetine 20 mg capsule (Prozac) 20 mg PO DAILY 01/21/24 02/06/24 infliximab 100 mg intravenous 100 mg IV MONTHLY 01/21/24 02/06/24 solution (Remicade) levocetirizine 5 mg tablet 5 mg PO DAILY 01/21/24 02/06/24 lisinopril 5 mg tablet 5 mg PO DAILY 01/21/24 02/06/24 metoprolol tartrate 25 mg tablet 25 mg PO DAILY 01/21/24 02/06/24 omeprazole 40 mg capsule,delayed 40 mg PO DAILY 01/21/24 02/06/24 release buspirone 10 mg tablet 10 mg PO DAILY 01/26/24 02/06/24 Previous Rx's ?Medication ?Instructions ?Recorded hydrocodone 5 mg-acetaminophen 325 1 tab PO Q6H PRN pain 5 days #12 05/23/23 mg tablet tabs albuterol sulfate 90 mcg/actuation 2 inh inhalation Q4-6H PRN 01/26/24 aerosol inhaler shortness of breath or wheezing #6.7 grams cefdinir 300 mg capsule 300 mg PO BID #20 caps 01/26/24 prednisone 20 mg tablet 20 mg PO BID #10 tabs 01/26/24 Allergies Allergy/AdvReac Type Severity Reaction Status Date / Time belladonna alkaloids Allergy Verified 01/21/24 09:56 Gadolinium-Containing Allergy Verified 01/21/24 09:56 Contrast Medi latex Allergy Verified 01/21/24 09:56 levofloxacin (From Levaquin) Allergy Verified 01/21/24 09:56 minocycline Allergy Verified 01/21/24 09:56 [facility] Disclaimer: The information contained in this section may have been updated after the patient was seen, as this information can be updated by other users. Medical History (Updated 07/12/24 @ 00:45 by Cipriano Nino MD) Kidney stones GERD (gastroesophageal reflux disease) Depression Anxiety Migraine Asthma Hypertension Lyme disease Rheumatoid arthritis Surgical History (Updated 01/26/24 @ 13:15 by Beba Kaplan RN) History of surgical removal of pilonidal cyst History of lumbar discectomy History of foot surgery Social History Smoking Status: Never smoker alcohol intake: never substance use type: denies use current occupational status: unemployed Travel in the last 8 weeks: None household members: significant other housing: house Have you lived/traveled outside [place] in past 30 days?: No Contact w/someone who lives/traveled outside [place] past 30 days?: No Exposure to someone with infectious disease in past 14 days?: No Do you have a fever (greater than 100.4 F or 38 C)?: No Have you tested positive for COVID-19: No Exposed to someone with COVID-19 in past 14 days?: No Do you have a sore throat?: No Do you have a cough?: No Do you have any weakness?: No Do you have any diarrhea?: No Are you experiencing any unusual bleeding?: No Do you have any muscle aches/pain?: No Do you have any abdominal pain?: Yes Are you experiencing loss of taste or smell?: No Other Medical History Have you received the Flu Vaccine for this season: No Have you received the Pneumonia Vaccine: No ROS Obtained: Yes All systems reviewed & no additional complaints except as documented Physical Exam General General appearance: alert and in no apparent distress Head Head exam: atraumatic and normocephalic Eye Eye exam: Present normal appearance, PERRL and EOMI ENT ENT exam: Present normal oropharynx and normal external ear exam Neck Neck exam: Present normal inspection and full ROM Chest Chest inspection: Present normal inspection and symmetric chest wall rise; Absent tenderness Respiratory Respiratory exam: Present normal lung sounds bilaterally; Absent respiratory distress Cardiovascular Cardiovascular exam: Present regular rate and normal rhythm Abdominal Exam Abdominal exam: Present soft; Absent distention, tenderness or guarding Extremities Exam Extremities exam: Present normal inspection; Absent edema or joint swelling Back Exam Back exam: Present normal inspection and CVA tenderness (R) Neurological Exam Neurological exam: Present alert and oriented X3; Absent motor sensory deficit Psychiatric Psychiatric exam: Present normal affect and normal mood Skin Skin exam: Present warm, dry and normal color Lymphatic Lymphatic Findings: no adenopathy Medical Decision Making Medical Records Medical records reviewed: Yes I reviewed the patient's medical records. Screening: Per USPSTF and CDC recommendations, given the prevalence of disease in our region, it is our hospital?s policy to screen for HIV and viral Hepatitis for all patients aged 18 and over and those with ongoing risk factors. Ganesh Inquiry Pt receiving controlled substance: No Ganesh was queried for this patient: No Vital Signs: 07/11/24 23:55 07/12/24 00:55 Temperature 98.0 F 98.2 F Temperature Source Oral Pulse Rate 90 Pulse Rate [Right Brachial] 122 H Respiratory Rate 20 20 Blood Pressure 199/97 H Blood Pressure [Right Arm] 133/104 H Blood Pressure Mean [Right Arm] 113 Blood Pressure Source [Right Arm] Automatic Cuff Blood Pressure Position [Right Arm] Sitting 02 Sat by Pulse Oximetry 100 Oxygen Delivery Method Room Air Room Air Lab Data Lab results reviewed: Yes I reviewed the patient's lab results. Lab Results 07/11/24 00:00: WBC 9.1, RBC 5.16, Hgb 14.6, Hct 45.0, MCV 87.2, MCH 28.3, MCHC 32.4, RDW 13.5, Plt Count 378, MPV 9.9, Neut % (Auto) 42.6, Lymph % (Auto) 47.5, [place] % (Auto) 6.3, Eos % (Auto) 2.5, Baso % (Auto) 0.9, Neut # (Auto) 3.9, Lymph # (Auto) 4.3, [place] # (Auto) 0.6, Eos # (Auto) 0.2, Baso # (Auto) 0.1, Sodium 137, Potassium 3.8, Chloride 102, Carbon Dioxide 29, Anion Gap 9.8, BUN 12, Creatinine 1.10, Estimated Creat Clear 175, Estimated GFR 78, Est GFR ( Amer) 94, Glucose 104 H, Calcium 10.1, Total Bilirubin 0.4, AST 48, ALT 49, Alkaline Phosphatase 61, Total Protein 7.9, Albumin 4.8, Globulin 3.1, Albumin/Globulin Ratio 1.5, HCV Ab [place] w/Rflx PCR Qn Negative, HIV Ag/Ab Combo Qual Negative 07/11/24 23:54: Urine Color Yellow, Urine Appearance Clear, Urine pH 6.0, Ur Specific [place] 1.025, Urine Protein Negative, Urine Glucose (UA) Negative, Urine Ketones Negative, Urine Blood Negative, Urine Nitrate Negative, Urine Bilirubin Negative, Urine Urobilinogen 0.2, Ur Leukocyte Esterase Negative, Urine RBC None, Urine WBC None, Ur Squamous Epith Cells Occasional, Urine Bacteria Trace 07/11/24 00:00 07/11/24 00:00 Orders (Tests/Meds): ED MEDICATIONS Discontinued Medications Generic Name Dose Route Start Last Admin Trade Name Freq PRN Reason Stop Dose Admin Lactated Ringer's 1,000 mls @ 999 mls/hr 07/11/24 23:45 07/12/24 00:07 Lactated Ringer's 1000 Ml Bag IV 07/12/24 00:45 999 mls/hr .Q1H1M LISSA Administration Ketorolac Tromethamine 30 mg 07/11/24 23:57 07/12/24 00:07 Ketorolac 30mg/Ml Vial IV 07/11/24 23:58 30 mg ONCE ONE Administration Morphine Sulfate 4 mg 07/11/24 23:57 07/12/24 00:07 Morphine 4mg/Ml Syringe IV 07/11/24 23:58 4 mg ONCE ONE Administration Ondansetron HCl 4 mg 07/11/24 23:57 07/12/24 00:07 Ondansetron 4mg/2ml Vial IV 07/11/24 23:58 4 mg ONCE ONE Administration Promethazine HCl 12.5 mg 07/12/24 01:02 07/12/24 01:03 Promethazine Hcl 12.5mg Tablet PO 07/12/24 01:03 12.5 mg ONCE ONE Administration ORDERS Category Date Time Status CT abdomen pelvis wo con Stat Cat Scan 07/12/24 00:24 Completed CBC w/Auto Diff [Complete Blood Count Auto Diff] Stat Lab 07/11/24 00:00 Completed CMP [Comprehensive Metabolic Panel] Stat Lab 07/11/24 00:00 Completed HIV Combo Routine Lab 07/11/24 00:00 Completed Hepatitis C Ab Qual. W/ RFX Routine Lab 07/11/24 00:00 Completed UA [Urinalysis and Microscopic] Stat Lab 07/11/24 23:54 Completed Medical Decision Narrative: 33-year-old male with history of of rheumatoid arthritis and prior kidney stones presents with right flank pain since earlier today.. History was obtained via interactive discussion with patient chart review. On arrival, patient is [afebrile, hemodynamically stable, satting appropriately, alert, oriented x4, GCS 15], moving all extremities spontaneously. Full physical exam performed and significant for right CVA tenderness Differential includes but is not limited to kidney stone, pyelonephritis, musculoskeletal pain. Patient was given Toradol morphine Zofran 1 L fluid bolus for symptomatic management and correction of underlying abnormalities. Workup initiated including CBC CMP CT Noncon (patient reports contrast allergy) UA. On re-evaluation, patient reports symptomatic improvement. Laboratory workup independently interpreted by me and significant for urine not consistent with infection, no red blood cells. Labs results otherwise nonactionable. Imaging independently interpreted by me and significant for intrarenal stone, no evidence of ureteral stone, hydronephrosis, perinephric stranding or any other acute pathology. See radiology read for full review of final results. CT angiogram for aortic pathology was considered, but deemed unnecessary due to history and exam. Given patient history, exam and workup, patient's presentation most likely represents musculoskeletal pain. Could be a small stone that has already passed, though this seems unlikely. no evidence of renal pathology at this time. Extensive discussion with patient regarding his presentation. He was discharged in stable condition with return precautions. Procedures Risk/Benefits of Procedure(s) Were Explained: Yes Critical Care Critical Care Time Critical Care Time: No
[2024-07-11 23:55] VITALS: BP 133/104; PULSE 122; RESP 20; TEMP 36.7; O2SAT 100; BMI 40.1
[2024-07-12 00:03] LABS: Microscopic, Urine URINE MICROSCOPIC (MICROSCOPIC)
[2024-07-12 00:06] LABS: Appearance,Urine CLEAR (Clear); Bilirubin,Urine Negative (Negative); Blood, Urine Negative (Negative); Color,Urine YELLOW (Yellow); Glucose,Urine (UA) Negative (Negative); Ketones,Urine Negative (Negative); Leukocyte Esterase,Urine Negative (Negative); Nitrate,Urine Negative (Negative); Protein,Urine Negative (Negative); Specific Gravity, Urine 1.025 (1.005-1.030); Urobilinogen,Urine 0.2 EU/dl (0.2)
[2024-07-12 00:06] LABS: Basophils # 0.1 K/mm3 (0-0.2); Basophils % 0.9 % (0.1-2.0); Eosinophils # 0.2 K/mm3 (0.0-0.4); Eosinophils % 2.5 % (0.1-12.0); Hemoglobin 14.6 g/dL (14.1-18.0); Lymphocytes # 4.3 K/mm3 (0.7-4.5); Lymphocytes % 47.5 % (10-50); Mean Corpuscular HGB Conc 32.4 g/dL (31.8-35.4); Mean Corpuscular Hemoglobin 28.3 pg (27.0-31.2); Mean Corpuscular Volume 87.2 fl (80-94); Mean Platelet Volume 9.9 fl (7.4-10.4); Monocytes # 0.6 K/mm3 (0.1-1.0); Monocytes % 6.3 % (1.7-9.3); Neutrophils # 3.9 K/mm3 (1.8-7.8); Neutrophils % 42.6 % (37.0-80.0); Platelet Count 378 K/mm3 (142-424); Red Blood Count 5.16 M/mm3 (4.60-6.20); Red Cell Distribution Width 13.5 % (11.5-17.5); White Blood Count 9.1 K/mm3 (4.8-10.8)
[2024-07-12] MEDS: LACTATED RINGERS 1000ML 1,000 ML 999 ML IV (00:07)
[2024-07-12] MEDS: ONDANSETRON 4MG/2ML VIAL 4 MG IV (00:07)
[2024-07-12] MEDS: KETOROLAC 30MG/ML VIAL 30 MG IV (00:07)
[2024-07-12] MEDS: MORPHINE 4MG/ML SYRINGE 4 MG IV (00:07)
[2024-07-12 00:12] LABS: Albumin Level 4.8 g/dl (3.5-5.0); Chloride 102 mmol/L (98-107)
[2024-07-12 00:13] LABS: Potassium 3.8 mmoL/L (3.5-5.1); Sodium 137 mmol/L (136-145)
[2024-07-12 00:15] LABS: Alanine Aminotransferase 49 U/L (12-78); Albumin/Globulin Ratio 1.5 (1.1-1.8); Alkaline Phosphatase 61 U/L (38-126); Anion Gap 9.8 mEq/L (5-15); Aspartate Amino Transferase 48 U/L (17-59); Bilirubin,Total 0.4 mg/dl (0.2-1.3); Blood Urea Nitrogen 12 mg/dl (9-20); Carbon Dioxide 29 mmol/L (22.0-30.0); Creatinine Clearance Estimated 175 mL/min (50-200); Estimated Glomerular Filt Rate 78 ml/min (>60); GFR (African American) 94 ML/MIN (>60); Globulin 3.1 g/dL (1.3-3.2); Total Protein,Serum 7.9 g/dl (6.3-8.2)
[2024-07-12 00:16] LABS: Calcium 10.1 mg/dl (8.4-10.2); Glucose 104 mg/dl (74-100)
[2024-07-12 00:23] LABS: Bacteria,Urine Trace /lpf; Squamous Epithelial Cell,Urine Occasional #/hpf (0-5)
--- NOTE | 2024-07-12 00:24 | CT_ITS ---
PROCEDURE INFORMATION: Exam: CT Abdomen And Pelvis Without Contrast Exam date and time: 07/12/2024 12:27 AM Age: 33 years old Clinical indication: Abdominal pain; Flank; Right; Additional info: R flank pain HX stones TECHNIQUE: Imaging protocol: Computed tomography of the abdomen and pelvis without contrast. Radiation optimization: All CT scans at this facility use at least one of these dose optimization techniques: automated exposure control; mA and/or kV adjustment per patient size (includes targeted exams where dose is matched to clinical indication); or iterative reconstruction. COMPARISON: No relevant prior studies available. FINDINGS: Liver: Normal. No mass. Gallbladder and biliary ducts: Surgically absent gallbladder. Pancreas: Normal. No ductal dilation. Spleen: Normal. No splenomegaly. Adrenal glands: Normal. No mass. Kidneys and ureters: Bilateral nonobstructive renal calculi measuring up to 0.3 cm in right kidney. No nephrolithiasis. Stomach and bowel: Unremarkable. No obstruction. No mucosal thickening. Appendix: No evidence of appendicitis. Intraperitoneal space: Unremarkable. No free air. No significant fluid collection. Vasculature: Unremarkable. No abdominal aortic aneurysm. Lymph nodes: Unremarkable. No enlarged lymph nodes. Urinary bladder: Unremarkable as visualized. Reproductive: Unremarkable as visualized. Bones/joints: Unremarkable. No acute fracture. Soft tissues: Unremarkable. IMPRESSION: 1. No acute findings identified. 2. Nonobstructive renal calculi.
--- NOTE | 2024-07-12 00:28 | PC.NURSE ---
Pt to Cat scan via wheelchair
[2024-07-12 00:55] VITALS: BP 199/97; PULSE 90; RESP 20; TEMP 36.8; O2SAT 94
[2024-07-12] MEDS: PROMETHAZINE HCL 12.5MG TABLET 12.5 MG PO (01:03)
[2024-07-12 01:17] LABS: HIV Combo NEGATIVE (Negative)
[2024-07-12 01:25] LABS: Hepatitis C Ab Qual. W/ RFX NEGATIVE (Negative)
== END 2024-07-12 01:03 | disposition home or self-care (01) ==
PROVIDERS: Emergency Provider Emergency Medicine; PCP Student in an Organized Health Care Education/Training Program
DX: R10.9 Unspecified abdominal pain (principal)
CPT/HCPCS: 74176; 80053; 81001; 85025; 86803; 87389; 96361; 96374; 96375; 99284; J1885; J2270; J2405; J7120